=== PATIENT | female | born 1985 | race Caucasian/White ===

== ENCOUNTER 2023-07-29 07:02 | Emergency (ER) | payer OTHER, SELFPAY ==
[2023-07-29 07:06] VITALS: BP 151/100; PULSE 113; RESP 18; TEMP 36.7; O2SAT 98; BMI 32.3
[2023-07-29 07:10] VITALS: PULSE 80; RESP 18; TEMP 36.5
[2023-07-29 07:24] LABS: Basophils % 0.5 %; Eosinophils # 0.2 10^3/uL (0.0-0.8); Eosinophils % 1.8 %; Hematocrit 38.6 % (36-47); Lymphocytes # 2.8 10^3/uL (0.8-4.8); Mean Corpuscular HGB Conc 33.2 g/dL (30-55); Mean Corpuscular Hemoglobin 30.4 pg (27-33); Mean Corpuscular Volume 91.7 fl (85-98); Mean Platelet Volume 11.5 fL (7.4-10.4); Monocytes # 0.8 10^3/uL (0.2-0.9); Monocytes % 9.2 %; Neutrophils # 4.67 10^3/uL (1.8-7.7); Nucleated Red Blood Cells % 0 %; Platelet Count 214 10^3/cmm (157-399); Red Blood Count 4.21 10^6/uL (3.85-5.65); Red Cell Distribution Width 12.3 % (12.1-15.1); White Blood Count 8.48 10^3/uL (3.29-11.43)
--- NOTE | 2023-07-29 07:27 | W.ED.HA ---
HPI - Headache General: Chief Complaint: Headache Stated Complaint: headache , dizzy, n/v Time Seen by Provider: 07/29/23 07:06 Source: patient Mode of arrival: ambulatory History of Present Illness: 37-year-old female presents emergency room complaining of a migraine headache in the occipital region. Began earlier this morning progressively worsened she does have photophobia photophobia and nausea and vomiting. She has had similar migraines in the past. She does not take any prophylactics for migraines or have any prescription medications for breakthrough. No recent head trauma. MD elicited complaint: headache Onset (ago): minute(s) Onset description: gradually Location: occipital Quality & Timing: throbbing Exacerbating factors: light and noise Associated symptoms: Deny chest pain, confusion, cough, diaphoresis, eye pain, eye redness, fever(s), lightheadedness, loss of vision, malaise, nausea, neck stiffness, numbness, paresthesias, photophobia, pre-syncope, rash, seizures, short of breath, sound sensitivity, syncope, vomiting or weakness Review of Systems Const: Denies: fever(s), malaise or diaphoresis Card: Denies: chest pain, lightheadedness, syncope or pre-syncope GI: Reports: abdominal pain; Denies: nausea or vomiting Skin/Breast: Denies: rash Neuro: Denies: confusion Physical Exam Const: GENERAL APPEARANCE: cooperative and comfortable ORIENTATION/CONSCIOUSNESS: Yes awake, Yes oriented to person, Yes oriented to place and Yes oriented to time HENMT: COMMON NORMALS: normocephalic, atraumatic and hearing grossly normal bilaterally HEAD & SCALP: normocephalic and atraumatic Eye: DIRECT OPHTHALMOSCOPY: No photophobia Resp: COMMON NORMALS: normal respiratory effort, No retractions, No use of accessory muscles and clear to auscultation bilaterally AUSCULTATION: clear to auscultation bilaterally Cardio: COMMON NORMALS: regular rate, regular rhythm and No murmurs present (Cardio) RATE: regular rate RHYTHM: regular rhythm GI: COMMON NORMALS: Soft to palpation and No hepatosplenomegaly present AUSCULTATION: Yes normoactive bowel sounds PALPATION: Yes Soft to palpation, No Tenderness to palpation present (GI), No Guarding due to palpation present (GI) and Yes No hepatosplenomegaly present Extremity: COMMON NORMALS: normal to inspection, capillary refill normal, no clubbing, cyanosis or edema, no calf tenderness and no pedal edema Neuro: SENSORIUM/ORIENTATION: Yes oriented to person, Yes oriented to place and Yes oriented to time Skin: COMMON NORMALS: no rashes or lesions noted GENERAL SKIN EXAM: no rashes or lesions noted Course Vital Signs: Vital signs: Vital Signs Temperature 98 F 07/29/23 10:00 Pulse Rate 82 07/29/23 10:00 Respiratory Rate 18 07/29/23 10:00 Blood Pressure 128/82 07/29/23 10:00 Pulse Oximetry 98 07/29/23 10:00 Oxygen Delivery Me thod Room Air 07/29/23 09:30 MDM - Headache Medical Decision Making Headache and nausea improved with medications she is feeling much better although somewhat sleepy from the medications. We will discharge patient home use diclofenac or promethazine as needed for further breakthrough headache if has recurrence of this or they become more frequent recommend following up with her primary care for consideration of more aggressive prophylaxis and treatments. Medical Records I reviewed the patient's medical records. Lab Data I reviewed the patient's lab results. 07/29/23 07:19 07/29/23 07:19 Laboratory Results WBC 8.48 10^3/uL (3.29-11.43) 07/29/23 07:19 RBC 4.21 10^6/uL (3.85-5.65) 07/29/23 07:19 Hgb 12.80 g/dL (11.27-16.99) 07/29/23 07:19 Hct 38.6 % (36-47) 07/29/23 07:19 MCV 91.7 fl (85-98) 07/29/23 07:19 MCH 30.4 pg (27-33) 07/29/23 07:19 MCHC 33.2 g/dL (30-55) 07/29/23 07:19 RDW 12.3 % (12.1-15.1) 07/29/23 07:19 Plt Count 214 10^3/cmm (157-399) 07/29/23 07:19 MPV 11.5 fL (7.4-10.4) H 07/29/23 07:19 Neut % (Auto) 55.0 % 07/29/23 07:19 Lymph % (Auto) 33.0 % 07/29/23 07:19 [place] % (Auto) 9.2 % 07/29/23 07:19 Eos % (Auto) 1.8 % 07/29/23 07:19 Baso % (Auto) 0.5 % 07/29/23 07:19 Neut # (Auto) 4.67 10^3/uL (1.8-7.7) 07/29/23 07:19 Lymph # (Auto) 2.8 10^3/uL (0.8-4.8) 07/29/23 07:19 [place] # (Auto) 0.8 10^3/uL (0.2-0.9) 07/29/23 07:19 Eos # (Auto) 0.2 10^3/uL (0.0-0.8) 07/29/23 07:19 Baso # (Auto) 0.0 10^3/uL (0.0-0.1) 07/29/23 07:19 Nucleated RBC % (auto) 0 % 07/29/23 07:19 Nucleated RBCs # 0.0 /100WBC 07/29/23 07:19 Sodium 141 mmol/L (136-145) 07/29/23 07:19 Potassium 3.6 mmol/L (3.5-5.1) 07/29/23 07:19 Chloride 106 mmol/L (98-107) 07/29/23 07:19 Carbon Dioxide 24 mmol/L (22-29) 07/29/23 07:19 Anion Gap 14.6 (5-19) 07/29/23 07:19 BUN 9 mg/dL (6-20) 07/29/23 07:19 Creatinine 0.7 mg/dL (0.5-0.9) 07/29/23 07:19 GFR Calculation 94.7 mL/min (90-130) 07/29/23 07:19 Glucose 116 mg/dL (65-115) H 07/29/23 07:19 Calculated Osmolality 292 mOsm/kg (285-295) 07/29/23 07:19 Calcium 9.2 mg/dL (8.5-10.5) 07/29/23 07:19 Total Bilirubin 0.2 mg/dL (0.15-1.2) 07/29/23 07:19 AST 27 U/L (0-32) 07/29/23 07:19 ALT 18 U/L (0-33) 07/29/23 07:19 Alkaline Phosphatase 65 U/L (35-105) 07/29/23 07:19 Total Protein 7.3 g/dL (6.6-8.7) 07/29/23 07:19 Albumin 4.7 g/dL (3.5-5.2) 07/29/23 07:19 Globulin 2.6 g/dL (1.3-4.6) 07/29/23 07:19 Discharge Plan Discharge Patient Disposition: Home Clinical Impression: Migraine Condition: Stable Prescriptions: New promethazine 25 mg tablet 25 mg PO Q6H PRN (Reason: headache) Qty: 20 0RF diclofenac sodium 75 mg tablet,delayed release (DR/EC) 75 mg PO Q12H PRN (Reason: headache) Qty: 20 0RF Discharge Orders: Discharge ED (Routine); Ordered 07/29/23 Ordered By: Scooter Cross Discharge Diet: Usual diet Discharge Activity: Increase activity as tolerated Patient Instructions: Migraine Headache (ED), Opioid Safety, Pain Management Coding Level of Care Code ED [employer] 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
[2023-07-29] MEDS: ondansetron 2 mg/ML SDV 2 mL 4 MG IVP (07:37)
[2023-07-29] MEDS: sodium chloride 0.9% 1,000 ML 999 ML IV (07:38)
[2023-07-29 07:45] LABS: Alanine Aminotransferase 18 U/L (0-33); Albumin Level 4.7 g/dL (3.5-5.2); Alkaline Phosphatase 65 U/L (35-105); Anion Gap 14.6 (5-19); Aspartate Amino Transferase 27 U/L (0-32); Blood Urea Nitrogen 9 mg/dL (6-20); Calcium 9.2 mg/dL (8.5-10.5); Carbon Dioxide 24 mmol/L (22-29); Chloride 106 mmol/L (98-107); Globulin 2.6 g/dL (1.3-4.6); Glomerular Filtration Rate 94.7 mL/min (90-130); Glucose 116 mg/dL (65-115); Osmolality Calculated 292 mOsm/kg (285-295); Potassium 3.6 mmol/L (3.5-5.1); Sodium 141 mmol/L (136-145); Total Bilirubin 0.2 mg/dL (0.15-1.2); Total Protein 7.3 g/dL (6.6-8.7)
[2023-07-29] MEDS: ketorolac 30 mg/mL INJ IVP (07:47)
[2023-07-29] MEDS: diphenhydrAMINE 50 mg/mL SDV 1mL IVP (07:47)
[2023-07-29] MEDS: promethazine 25 mg/mL SDV 1 mL IM (07:47)
[2023-07-29] MEDS: dihydroergotamine 1 mg/mL Inj IVP (07:48)
[2023-07-29 08:10] VITALS: BP 118/87; PULSE 82; RESP 18; O2SAT 98
[2023-07-29] MEDS: haloperidol inj 5 mg/mL INJ 1 mL 2.5 MG IVP (08:44)
[2023-07-29 09:30] VITALS: BP 128/82; PULSE 82; RESP 18; TEMP 36.6; O2SAT 98
[2023-07-29 10:00] VITALS: BP 128/82; PULSE 82; RESP 18; TEMP 36.6; O2SAT 98
== END 2023-07-29 10:02 | disposition home or self-care (01) ==
PROVIDERS: Emergency Provider Family Medicine
DX: G43.909 Migraine, unspecified, not intractable, without status migrainosus (principal)
CPT/HCPCS: 36415; 80053; 85025; 96372; 96374; 96375; 99284; J1110; J1200; J1630; J1885; J2405; J2550; J7030